=== PATIENT | female | born 1950 | race American Indian/Alaskan Native ===

== ENCOUNTER 2017-01-13 22:48 | Emergency (ER) | payer MEDICARE ==
[2017-01-13 23:12] VITALS: BP 156/73
--- NOTE | 2017-01-13 23:27 | Emergency Department Report ---
HPI - General Chief Complaint: Head Injury Time Seen by Provider: 01/13/17 23:13 - HPI HPI: Room 2 The patient is a 67-year-old female presenting with a chief complaint of head injury. Patient is currently at [facility] under 1013 for psychosis and hallucinations. The patient reportedly was sitting in her wheelchair when it tipped backwards and she fell striking the back of her head. There is no loss of consciousness. The fall occurred approximately one hour prior to this interview. Patient was sent for evaluation after the fall. Patient currently denies any complaints and states she only "wants coffee." Location: Head Duration: Occurred 1 hour ago Quality: Painless Severity: 0/10 Modifying factors: [see above] Context: [see above] Mode of transportation: [not driving] ED Past Medical Hx - Past Medical History Previous Medical History?: Yes Hx Hypertension: Yes Hx CVA: Yes (with residual left-sided weakness) Hx GERD: Yes Hx Psychiatric Treatment: Yes - Surgical History Past Surgical History?: No - Family History Family history: no significant - Social History Smoking Status: Unknown if ever smoked Substance Use Type: None ED Review of Systems ROS: Stated complaint: FALL Other details as noted in HPI Comment: All other systems reviewed and negative Constitutional: denies: chills, fever Eyes: denies: eye pain, eye discharge, vision change ENT: denies: ear pain, throat pain Respiratory: denies: cough, shortness of breath, wheezing Cardiovascular: denies: chest pain, palpitations Endocrine: no symptoms reported Gastrointestinal: denies: abdominal pain, nausea, diarrhea Genitourinary: denies: urgency, dysuria, discharge Musculoskeletal: denies: back pain, joint swelling, arthralgia Skin: denies: rash, lesions Neurological: denies: headache, weakness, paresthesias Psychiatric: visual hallucinations. denies: anxiety, depression Hematological/Lymphatic: denies: easy bleeding, easy bruising Physical Exam - Physical Exam Vital Signs: Vital Signs 01/13/17 23:02 Temperature 98.8 F Pulse Rate 58 L Respiratory 18 Rate Blood Pressure 156/73 O2 Sat by Pulse 99 Oximetry Physical Exam: GENERAL: The patient is well-developed well-nourished female sitting on stretcher not appearing to be in acute distress HEENT: Normocephalic. Atraumatic. Extraocular motions are intact. Patient has moist mucous membranes. NECK: Supple. No axial tenderness to palpation or step off CHEST/LUNGS: Clear to auscultation. There is no respiratory distress noted. HEART/CARDIOVASCULAR: Regular. There is no tachycardia. There is no gallop rub or murmur. ABDOMEN: Abdomen is soft, nontender. Patient has normal bowel sounds. There is no abdominal distention. SKIN: There is no rash. There is no edema. There is no diaphoresis. NEURO: The patient is awake and alert. The patient is cooperative. Cranial nerves II through XII grossly intact. 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 The patient has normal speech MUSCULOSKELETAL: There is no evidence of acute injury. ED Course Vital Signs 01/13/17 23:02 Temperature 98.8 F Pulse Rate 58 L Respiratory 18 Rate Blood Pressure 156/73 O2 Sat by Pulse 99 Oximetry ED Medical Decision Making - Radiology Data Radiology results: report reviewed (CT head, CT cervical spine), image reviewed (CT head, CT cervical spine) CT head (read by radiologist)-areas of hypoattenuation identified in the right temporal lobe consistent with subacute chronic infarction this region. No mass effect or midline displacement. Atrophy is noted. No acute hemorrhage or hematoma. CT cervical spine (read by radiologist)-no evidence of an acute fracture. Mild arthritis and degenerative disc changes. - Differential Diagnosis ICH, subdural hematoma, closed head injury, skull fracture, cervical fractu Critical care attestation.: If time is entered above; I have spent that time in minutes in the direct care of this critically ill patient, excluding procedure time. ED Disposition Clinical Impression: Closed head injury Disposition: DISCHARGED TO HOME OR SELFCARE Is pt being admited?: No Does the pt Need Aspirin: No Condition: Stable Instructions: Minor Head Injury (ED) Additional Instructions: Return to the emergency department immediately should you develop worsening symptoms, fever, inability to tolerate food or liquid or any other concerns. Referrals: PRIMARY CARE [Primary Care Provider] - 3-5 Days Time of Disposition: 00:17
[2017-01-14] MEDS ORDERED: NORMODYNE IV ONE (00:02)
--- NOTE | 2017-01-14 00:02 | Cat Scan Report ---
FINAL REPORT PROCEDURE: CT CERVICAL SPINE WO CON TECHNIQUE: Computerized tomography of the cervical spine was performed from the skull base to T1 without contrast material. HISTORY: head injury COMPARISON: No prior studies are available for comparison. FINDINGS: The alignment of the vertebral segments is normal. The heights of the vertebral bodies are maintained. Mild loss of disc space height at the C3-4, C4-5, C5-6 and C6-7 levels. Mild spur formation off of the vertebral segments from the C4 through C7 vertebral levels. The spinal canal is adequate at all levels. The visualized portion of the airway is patent. No evidence of acute fracture or dislocation of the cervical spine. IMPRESSION: No evidence of an acute fracture. Mild arthritis and degenerative disc changes..
--- NOTE | 2017-01-14 00:02 | Cat Scan Report ---
FINAL REPORT PROCEDURE: CT HEAD/BRAIN WO CON TECHNIQUE: Computerized tomography of the head was performed without contrast material. HISTORY: head injury COMPARISON: No prior studies are available for comparison. FINDINGS: Skull and scalp: Normal. Paranasal sinuses: Normal. Ventricles and subarachnoid spaces: Normal. Cerebrum: There is an area of hypoattenuation in the right temporal lobe, subacute chronic infarction in this region is noted. No mass effect or midline displacement is identified. No edema. No acute hemorrhage is seen.. Cerebellum and brainstem: No evidence of hemorrhage, acute infarction or mass. Vasculature: Normal. Comments: None. IMPRESSION: Area of hypoattenuation identified in the right temporal lobe consistent with subacute chronic infarction this region. No mass effect or midline displacement. Mild atrophy is noted. No acute hemorrhage or hematoma. This
== END 2017-01-14 01:50 | disposition home or self-care (01) ==
LOC: ED 22:48
DX: S09.90XA Unspecified injury of head, initial encounter (principal); I10 Essential (primary) hypertension; I63.9 Cerebral infarction, unspecified; K21.9 Gastro-esophageal reflux disease without esophagitis; W05.0XXA Fall from non-moving wheelchair, initial encounter; Y93.89 Activity, other specified; Y99.9 Unspecified external cause status; Y92.89 Other specified places as the place of occurrence of the external cause
CPT/HCPCS: 70450; 72125

== ENCOUNTER 2017-01-19 23:28 | Inpatient (IN) | payer MEDICARE ==
[2017-01-20] MEDS ORDERED: ATROPINE IV ONE (00:21)
--- NOTE | 2017-01-20 00:27 | Emergency Department Report ---
HPI - General Chief Complaint: Recheck/Abnormal Lab/Rx Time Seen by Provider: 01/20/17 00:13 - HPI HPI: Room 18 The patient is a 67-year-old female presenting with a chief complaint of bradycardia. The patient is reportedly a 1013 from [facility] was sent to the ED secondary to bradycardia. No paperwork from [facility] is currently available patient denies complaints and just states she feels cold. Patient denies chest pain. Nursing is attempting to obtain paperwork from [facility] Location: The cardiovascular system Duration: Unknown Quality: Bradycardia Severity: 31 bpm Modifying factors: [see above] Context: [see above] Mode of transportation: [not driving] ED Past Medical Hx - Past Medical History Hx Hypertension: Yes Hx CVA: Yes (with residual left-sided weakness) Hx GERD: Yes Hx Psychiatric Treatment: Yes - Surgical History Past Surgical History?: Yes Additional Surgical History: C-sections X 3, Abdominal skin grafts - Family History Family history: no significant - Social History Smoking Status: Never Smoker Substance Use Type: None ED Review of Systems ROS: Stated complaint: LOW HEART RATE Other details as noted in HPI Comment: All other systems reviewed and negative Constitutional: denies: chills, fever Eyes: denies: eye pain, eye discharge, vision change ENT: denies: ear pain, throat pain Respiratory: denies: cough, shortness of breath, wheezing Cardiovascular: denies: chest pain Endocrine: no symptoms reported Gastrointestinal: denies: abdominal pain, nausea, diarrhea Genitourinary: denies: urgency, dysuria, discharge Musculoskeletal: denies: back pain, joint swelling, arthralgia Skin: denies: rash, lesions Neurological: denies: headache, weakness, paresthesias Hematological/Lymphatic: denies: easy bleeding, easy bruising Physical Exam - Physical Exam Vital Signs: Vital Signs 01/19/17 23:39 Temperature 97.7 F Pulse Rate 48 L Respiratory 16 Rate Blood Pressure 138/45 Blood Pressure 136/45 [Left] O2 Sat by Pulse 100 Oximetry Physical Exam: GENERAL: The patient is well-developed well-nourished female sleeping on stretcher not appearing to be in acute distress. Due to awakened with tactile stimuli and denies complaints HEENT: Normocephalic. Atraumatic. NECK: Supple. Trachea midline CHEST/LUNGS: Clear to auscultation. There is no respiratory distress noted. HEART/CARDIOVASCULAR: Regular. Tachycardia. Monitor reveals 37 bpm. There is no gallop rub or murmur. ABDOMEN: Abdomen is soft, nontender. Patient has normal bowel sounds. There is no abdominal distention. SKIN: There is no rash. There is no edema. There is no diaphoresis. NEURO: The patient is awake and cooperative. The patient has normal speech MUSCULOSKELETAL: There is no evidence of acute injury. ED Course Vital Signs 01/19/17 23:39 Temperature 97.7 F Pulse Rate 48 L Respiratory 16 Rate Blood Pressure 138/45 Blood Pressure 136/45 [Left] O2 Sat by Pulse 100 Oximetry - Reevaluation(s) Reevaluation #1: 01/20/17 00:47 Patient's heart rate improved with atropine ED Medical Decision Making - Lab Data Result diagrams: 01/20/17 00:09 01/20/17 00:09 Laboratory Tests 01/20/17 01/20/17 01/20/17 00:09 00:09 00:27 WBC 5.3 RBC 4.55 Hgb 12.2 Hct 38.7 MCV 85 MCH 27 L MCHC 32 RDW 15.3 H Plt Count 174 Lymph % (Auto) Garment Supervisor Seg Neutrophils % Garment Supervisor Carbon Dioxide 30 BUN 9 Creatinine 0.5 L Estimated GFR > 60 BUN/Creatinine Ratio 18.00 Glucose 121 H Calcium 9.0 Magnesium 1.70 Troponin T < 0.010 TSH Free T4 01/20/17 00:27 WBC RBC Hgb Hct MCV MCH MCHC RDW Plt Count Lymph % (Auto) Seg Neutrophils % Carbon Dioxide BUN Creatinine Estimated GFR BUN/Creatinine Ratio Glucose Calcium Magnesium Troponin T TSH 1.220 Free T4 1.57 H Sodium 146, potassium 3.0, chloride 102.7 - EKG Data -: EKG Interpreted by In EKG shows normal: sinus rhythm Rate: bradycardia (at 42 bpm) - EKG Data When compared to previous EKG there are: previous EKG unavailable Interpretation: nonspecific ST-T wave roberto carlos (T-wave inversions in lead 3 and V2) 01/20/17 00:30 Profound bradycardia - Medical Decision Making Review of medical records sent from [facility] reveals the patient is on Lopressor however the times of administration are not visualized. - Differential Diagnosis sick sinus syndrome, electrolyte abnormality Critical care attestation.: If time is entered above; I have spent that time in minutes in the direct care of this critically ill patient, excluding procedure time. ED Disposition Clinical Impression: Bradycardia, Hypokalemia Disposition: OP ADMITTED IP TO THIS HOSP Is pt being admited?: Yes Does the pt Need Aspirin: Yes Condition: Stable Referrals: PRIMARY CARE,MD [Primary Care Provider] - 3-5 Days Time of Disposition: 01:32 (hospitalist paged)
[2017-01-20 00:32] LABS: Hematocrit 38.7 % (30.3-42.9); Hemoglobin 12.2 gm/dl (10.1-14.3); Mean Corpuscular HGB Conc 32 % (30-34); Mean Corpuscular Hemoglobin 27 pg (28-32); Mean Corpuscular Volume 85 fl (79-97); Platelet Count 174 K/mm3 (140-440); Red Blood Count 4.55 M/mm3 (3.65-5.03); Red Cell Distribution Width 15.3 % (13.2-15.2); White Blood Count 5.3 K/mm3 (4.5-11.0)
[2017-01-20 00:53] LABS: Anion Gap 16 mmol/L; Blood Urea Nitrogen 9 mg/dL (7-17); Carbon Dioxide 30 mmol/L (22-30); Chloride 102.7 mmol/L (98-107); Glucose 121 mg/dL (65-100); Sodium 146 mmol/L (137-145)
[2017-01-20] MEDS ORDERED: K-DUR PO ONE (01:21)
[2017-01-20] MEDS ORDERED: ASPIRIN PO ONE (01:32)
[2017-01-20 02:01] LABS: Urine Drugs of Abuse Note Disclamer
[2017-01-20] MEDS ORDERED: ASPIRIN ONE (02:02)
[2017-01-20 02:18] LABS: Anisocytosis 1+; Basophils % (Manual) 0 % (0.0-1.8); Blastocytes % (Manual) 0 %
[2017-01-20 02:19] LABS: Burr Cells Few; Diff Status Complete
[2017-01-20] MEDS ORDERED: TYLENOL PO PRN (06:20)
[2017-01-20] MEDS ORDERED: ZOFRAN IV PRN (06:20)
[2017-01-20] MEDS ORDERED: MILK OF MAGNESIA PO PRN (06:20)
[2017-01-20] MEDS ORDERED: DULCOLAX PR PRN (06:20)
--- NOTE | 2017-01-20 06:25 | History and Physical Report ---
History of Present Illness Date of examination: 01/20/17 Date of admission: 01/20/17 01:33 Chief complaint: Sent from [place] for HR of 30's History of present illness: The patient is a 67-year-old female presenting with a slow heart rate of 30's The patient is reportedly a 1013 from [place] [facility] was sent to the ED secondary to bradycardia. No Chest pain or syncope.No diaphoresis.Patient on betablockers which were stopped in ER. Location: The cardiovascular system Duration: Unknown Quality: Bradycardia Severity: 31 bpm Modifying factors: [see above] Context: [see above] Mode of transportation: [not driving] ED Past Medical Hx - Past Medical History Hx Hypertension: Yes Hx CVA: Yes (with residual left-sided weakness) Hx GERD: Yes Hx Psychiatric Treatment: Yes - Surgical History Past Surgical History?: Yes Additional Surgical History: C-sections X 3, Abdominal skin grafts - Family History Family history: no significant - Social History Smoking Status: Never Smoker Substance Use Type: None ED Review of Systems ROS: Stated complaint: LOW HEART RATE Other details as noted in HPI Comment: All other systems reviewed and negative Constitutional: denies: chills, fever Eyes: denies: eye pain, eye discharge, vision change ENT: denies: ear pain, throat pain Respiratory: denies: cough, shortness of breath, wheezing Cardiovascular: denies: chest pain Endocrine: no symptoms reported Gastrointestinal: denies: abdominal pain, nausea, diarrhea Genitourinary: denies: urgency, dysuria, discharge Musculoskeletal: denies: back pain, joint swelling, arthralgia Skin: denies: rash, lesions Neurological: denies: headache, weakness, paresthesias Hematological/Lymphatic: denies: easy bleeding, easy bruisin Past History Past Medical History: GERD, hypertension, stroke, other (psych problems) Social history: lives with family Medications and Allergies Allergies Allergy/AdvReac Type Severity Reaction Status Date / Time amlodipine besylate Allergy Hives Verified 01/20/17 02:21 [[address] [facility]] morphine Allergy Rash Verified 01/20/17 02:22 Home Medications Medication Instructions Recorded Confirmed Last Taken Type Clopidogrel Bisulfate [Plavix] 1 tab PO DAILY 01/20/17 01/20/17 Unknown History Keppra TAB 500 mg PO BID 01/20/17 01/20/17 Unknown History LaMICtal 50 mg PO HS 01/20/17 01/20/17 Unknown History Lopressor 50 mg PO BID 01/20/17 01/20/17 Unknown History Melatonin 3 mg PO HS 01/20/17 01/20/17 Unknown History RisperDAL 0.25 mg PO TID 01/20/17 01/20/17 Unknown History traZODone 50 mg PO HS 01/20/17 01/20/17 Unknown History Active Meds: Active Medications Clopidogrel Bisulfate (Plavix) 75 mg PO DAILY BRUNO Lamotrigine (Lamictal) 50 mg PO QHS BRUNO Levetiracetam (Keppra) 500 mg PO BID BRUNO Risperidone (Risperdal) 0.25 mg PO TID BRUNO Trazodone HCl (Desyrel) 50 mg PO QHS BRUNO Review of Systems All systems: negative Exam - Constitutional Vitals: Temp Pulse Resp BP Pulse Ox 98.9 F 43 L 20 163/63 99 01/20/17 04:51 01/20/17 05:17 01/20/17 05:10 01/20/17 04:51 01/20/17 05:10 General appearance: Present: no acute distress, well-nourished - EENT Eyes: Present: PERRL ENT: hearing intact, clear oral mucosa - Neck Neck: Present: supple, normal ROM - Respiratory Respiratory effort: normal Respiratory: bilateral: CTA - Cardiovascular Heart Sounds: Present: S1 & S2. Absent: rub, click - Extremities Extremities: pulses symmetrical, No edema Peripheral Pulses: within normal limits - Abdominal General gastrointestinal: Present: soft, non-tender, non-distended, normal bowel sounds Female genitourinary: Present: normal - Integumentary Integumentary: Present: clear, warm, dry - Musculoskeletal Musculoskeletal: gait normal, strength equal bilaterally - Psychiatric Psychiatric: appropriate mood/affect, intact judgment & insight - Neurologic Neurologic: CNII-XII intact, moves all extremities Results - Labs CBC & Chem 7: 01/20/17 00:09 01/20/17 07:46 Labs: Laboratory Last Values WBC 5.3 K/mm3 (4.5-11.0) 01/20/17 00:09 RBC 4.55 M/mm3 (3.65-5.03) 01/20/17 00:09 Hgb 12.2 gm/dl (10.1-14.3) 01/20/17 00:09 Hct 38.7 % (30.3-42.9) 01/20/17 00:09 MCV 85 fl (79-97) 01/20/17 00:09 MCH 27 pg (28-32) L 01/20/17 00:09 MCHC 32 % (30-34) 01/20/17 00:09 RDW 15.3 % (13.2-15.2) H 01/20/17 00:09 Plt Count 174 K/mm3 (140-440) 01/20/17 00:09 Lymph % (Auto) Service Counter Cashier 01/20/17 00:09 Add Manual Diff Complete 01/20/17 00:09 Total Counted 100 01/20/17 00:09 Seg Neutrophils % Service Counter Cashier 01/20/17 00:09 Seg Neuts % (Manual) 16.0 % (40.0-70.0) L 01/20/17 00:09 Band Neutrophils % 0 % 01/20/17 00:09 Lymphocytes % (Manual) 72.0 % (13.4-35.0) H 01/20/17 00:09 Reactive Lymphs % (Man) 2.0 % 01/20/17 00:09 Monocytes % (Manual) 5.0 % (0.0-7.3) 01/20/17 00:09 Eosinophils % (Manual) 5.0 % (0.0-4.3) H 01/20/17 00:09 Basophils % (Manual) 0 % (0.0-1.8) 01/20/17 00:09 Metamyelocytes % 0 % 01/20/17 00:09 Myelocytes % 0 % 01/20/17 00:09 Promyelocytes % 0 % 01/20/17 00:09 Blast Cells % 0 % 01/20/17 00:09 Nucleated RBC % Not Reportable 01/20/17 00:09 Seg Neutrophils # Man 0.8 K/mm3 (1.8-7.7) L 01/20/17 00:09 Band Neutrophils # 0.0 K/mm3 01/20/17 00:09 Lymphocytes # (Manual) 3.8 K/mm3 (1.2-5.4) 01/20/17 00:09 Abs React Lymphs (Man) 0.1 K/mm3 01/20/17 00:09 Monocytes # (Manual) 0.3 K/mm3 (0.0-0.8) 01/20/17 00:09 Eosinophils # (Manual) 0.3 K/mm3 (0.0-0.4) 01/20/17 00:09 Basophils # (Manual) 0.0 K/mm3 (0.0-0.1) 01/20/17 00:09 Metamyelocytes # 0.0 K/mm3 01/20/17 00:09 Myelocytes # 0.0 K/mm3 01/20/17 00:09 Promyelocytes # 0.0 K/mm3 01/20/17 00:09 Blast Cells # 0.0 K/mm3 01/20/17 00:09 WBC Morphology Not Reportable 01/20/17 00:09 Hypersegmented Neuts Not Reportable 01/20/17 00:09 Hyposegmented Neuts Not Reportable 01/20/17 00:09 Hypogranular Neuts Not Reportable 01/20/17 00:09 Smudge Cells Not Reportable 01/20/17 00:09 Toxic Granulation Not Reportable 01/20/17 00:09 Toxic Vacuolation Not Reportable 01/20/17 00:09 Dohle Bodies Not Reportable 01/20/17 00:09 Pelger-Huet Anomaly Not Reportable 01/20/17 00:09 Kristie Rods Not Reportable 01/20/17 00:09 Platelet Estimate Appears normal 01/20/17 00:09 Clumped Platelets Not Reportable 01/20/17 00:09 Plt Clumps, EDTA Not Reportable 01/20/17 00:09 Large Platelets Not Reportable 01/20/17 00:09 Giant Platelets Not Reportable 01/20/17 00:09 Platelet Satelliting Not Reportable 01/20/17 00:09 Plt Morphology Comment Not Reportable 01/20/17 00:09 RBC Morphology Not Reportable 01/20/17 00:09 Dimorphic RBCs Not Reportable 01/20/17 00:09 Polychromasia Not Reportable 01/20/17 00:09 Hypochromasia Not Reportable 01/20/17 00:09 Poikilocytosis Not Reportable 01/20/17 00:09 Anisocytosis 1+ 01/20/17 00:09 Microcytosis Not Reportable 01/20/17 00:09 Macrocytosis Not Reportable 01/20/17 00:09 Spherocytes Not Reportable 01/20/17 00:09 Pappenheimer Bodies Not Reportable 01/20/17 00:09 Sickle Cells Not Reportable 01/20/17 00:09 Target Cells Not Reportable 01/20/17 00:09 Tear Drop Cells Not Reportable 01/20/17 00:09 Ovalocytes Not Reportable 01/20/17 00:09 Helmet Cells Not Reportable 01/20/17 00:09 Choi-Merrifield Bodies Not Reportable 01/20/17 00:09 Massillon Rings Not Reportable 01/20/17 00:09 Maceo Cells Few 01/20/17 00:09 Bite Cells Not Reportable 01/20/17 00:09 Crenated Cell Not Reportable 01/20/17 00:09 Elliptocytes Not Reportable 01/20/17 00:09 Acanthocytes (Spur) Not Reportable 01/20/17 00:09 Rouleaux Not Reportable 01/20/17 00:09 Hemoglobin C Crystals Not Reportable 01/20/17 00:09 Schistocytes Not Reportable 01/20/17 00:09 Malaria parasites Not Reportable 01/20/17 00:09 Raheel Bodies Not Reportable 01/20/17 00:09 Hem Pathologist Commnt No 01/20/17 00:09 Carbon Dioxide 30 mmol/L (22-30) 01/20/17 00:09 BUN 9 mg/dL (7-17) 01/20/17 00:09 Creatinine 0.5 mg/dL (0.7-1.2) L 01/20/17 00:09 Estimated GFR > 60 ml/min 01/20/17 00:09 BUN/Creatinine Ratio 18.00 % 01/20/17 00:09 Glucose 121 mg/dL (65-100) H 01/20/17 00:09 Calcium 9.0 mg/dL (8.4-10.2) 01/20/17 00:09 Magnesium 1.70 mg/dL (1.7-2.3) 01/20/17 00:27 Troponin T < 0.010 ng/mL (0.00-0.029) 01/20/17 04:11 TSH 1.220 mlU/mL (0.270-4.200) 01/20/17 00:27 Free T4 1.57 ng/dL (0.76-1.46) H 01/20/17 00:27 Urine Opiates Screen Presumptive negative 01/20/17 Unknown Urine Methadone Screen Presumptive negative 01/20/17 Unknown Ur Barbiturates Screen Presumptive negative 01/20/17 Unknown Ur Phencyclidine Scrn Presumptive negative 01/20/17 Unknown Ur Amphetamines Screen Presumptive negative 01/20/17 Unknown U Benzodiazepines Scrn Presumptive negative 01/20/17 Unknown Urine Cocaine Screen Presumptive negative 01/20/17 Unknown U Marijuana (THC) Screen Presumptive negative 01/20/17 Unknown Drugs of Abuse Note Disclamer 01/20/17 Unknown - Imaging and Cardiology EKG: report reviewed (Sinus Bradycardia) Assessment and Plan Advance Directives: Yes (Full account) VTE prophylaxis?: Chemical Plan of care discussed with patient/family: Yes - Patient Problems (1) Bradycardia Current Visit: Yes Status: Acute Plan to address problem: On Lopressor.Stopped beta blockers. Will observe.Iv fluids for now. (2) Hypokalemia Current Visit: Yes Status: Acute Plan to address problem: Supplemented (3) HTN (hypertension) Current Visit: Yes Status: Chronic Qualifiers: Hypertension type: essential hypertension Qualified Code(s): I10 - Essential (primary) hypertension Plan to address problem: Hold Lopressor Add different class of antihypertensive as necessary (4) CVA, old, cognitive deficits Current Visit: Yes Status: Chronic Plan to address problem: Cont Plavix (5) Seizure disorder Current Visit: Yes Status: Chronic Plan to address problem: Cont Keppra and Lamictal (6) Psychosis Current Visit: Yes Status: Chronic Qualifiers: Psychosis type: unspecified psychosis type Schizoaffective disorder type: S Schizophrenia type: S Qualified Code(s): F29 - Unspecified psychosis not due to a substance or known physiological condition Plan to address problem: Cont risperdal (7) DVT prophylaxis Current Visit: Yes Status: Acute Plan to address problem: On Lovenox
[2017-01-20] MEDS ORDERED: D5NS 1,000 ML IV SCH (07:00)
[2017-01-20] MEDS ORDERED: RISPERDAL PO SCH (08:00)
[2017-01-20 08:54] LABS: Alanine Aminotransferase 16 units/L (7-56); Albumin 3.4 g/dL (3.9-5); Albumin/Globulin Ratio 1.4 %; Alkaline Phosphatase 86 units/L (35-129); Anion Gap 17 mmol/L; Blood Urea Nitrogen 7 mg/dL (7-17); Calcium 8.5 mg/dL (8.4-10.2); Carbon Dioxide 25 mmol/L (22-30); Chloride 102.1 mmol/L (98-107); Glucose 137 mg/dL (65-100); Potassium 3.3 mmol/L (3.6-5.0); Sodium 141 mmol/L (137-145); Total Protein 5.8 g/dL (6.3-8.2)
[2017-01-20] MEDS: KEPPRA PO SCH ×2 (09:56→22:42)
[2017-01-20] MEDS: RisperDAL PO SCH ×3 (09:56→22:41)
[2017-01-20] MEDS: PLAVIX PO SCH (09:56)
--- NOTE | 2017-01-20 09:57 | XRay Report ---
AP CHEST : 01/19/17 23:28:00 CLINICAL: Bradycardia. COMPARISON:None FINDINGS: Borderline cardiomegaly. Prominent cardiac stent graft and median sternotomy wires. Normal pulmonary vessels. The lungs are normally expanded and clear. IMPRESSION: Borderline cardiomegaly. No CHF.
[2017-01-20] MEDS ORDERED: KEPPRA 500 MG PO SCH (10:00)
[2017-01-20] MEDS: LOVENOX SUB-Q SCH (11:06)
[2017-01-20 15:52] LABS: Anion Gap 18 mmol/L; BUN/Creatinine Ratio 13.33; Blood Urea Nitrogen 8 mg/dL (7-17); Calcium 8.5 mg/dL (8.4-10.2); Carbon Dioxide 29 mmol/L (22-30); Chloride 101.2 mmol/L (98-107); Glucose 192 mg/dL (65-100); Potassium 3.3 mmol/L (3.6-5.0); Sodium 145 mmol/L (137-145)
[2017-01-20] MEDS: HALFPRIN EC PO SCH (16:46)
[2017-01-20] MEDS ORDERED: LAMICTAL 50 MG PO SCH (22:00)
[2017-01-20] MEDS ORDERED: NON-FORMULARY (Trazodone 50 MG) PO SCH (22:00)
[2017-01-20] MEDS: DESYREL PO SCH (22:41)
[2017-01-20] MEDS: ISORDIL TITRADOSE PO SCH (22:41)
[2017-01-20] MEDS: LaMICtal PO SCH (22:42)
[2017-01-21] MEDS: RisperDAL PO SCH ×2 (08:23→16:36)
--- NOTE | 2017-01-21 09:06 | Admit Criteria Form ---
Admission Criteria Documentation: TELEMETRY CARE Telemetry Admission Guidelines (Place 'X' for any and all applicable criteria): Admission to telemetry [A] may be indicated for ANY ONE of the following(1)(2)(3 )(4)(5): [X]I. Cardiac disease, including ANY ONE of the following (9)(10)(11)(12)(13 ): [ ]a) Postacute WI [ ]b) Low-risk patients with ST-segment elevation WI who have undergone successful percutaneous coronary intervention [ ]c) Unstable angina [ ]d) Suspected WI (until it is ruled out) [ ]e) Post cardiac surgery (first 48 to 72 hours unless complications occur) [X]f) Acute arrhythmias (including significant tachycardia or bradycardia) [B] [ ]g) Firing of an implantable cardioverter defibrillator [C] [ ]h) Suspected pacemaker or implantable cardioverter defibrillator malfunction (10) [ ]i) New administration or adjustment of an antiarrhythmic drug [D ] [ ]j) Child admitted for acute congestive heart failure [ ]j) Long QT syndrome [ ]k) Advanced heart block (eg, second-degree Mobitz type II, third- degree heart block) [ ]l) Acute myocarditis or pericarditis [ ]m) Short-term (ambulatory or inpatient) monitoring after a cardiac procedure as indicated by ANY ONE of the following [E]: [ ]i) Electrophysiologic studies [ ]ii) Percutaneous coronary intervention with stent placement [ ]iii) Pacemaker placement with cardiac conduction defect [ ]iv) Implantable cardiac defibrillator placement [ ]II. Drug overdose or poisoning with substance that causes arrhythmias or QT prolongation (eg, phenothiazines, sympathomimetic agents, cyclic antidepressants, digitalis, antiarrhythmic drugs)(15) [ ]III. Short-term (ambulatory or inpatient) monitoring after therapeutic or diagnostic procedure requiring conscious sedation or anesthesia (eg, endoscopy, elective cardioversion) [ ]IV. Acute cerebrovascular even[F](18) [ ]V. Massive blood transfusion (eg, at least 10 units of packed red blood cells in 24 hours) [ ]. Variceal bleeding after endoscopy, sclerotherapy, or IV vasopressin [ ]VII. Uncorrected electrolyte abnormalities associated with an increased risk of dangerous arrhythmia [G]; examples include [ ]a) Hyperkalemia with attributable ECG changes [ ]b) Potassium greater than 6.5 mmol/L (mEq/L) in a patient without history of chronic renal disease [ ]c) Prolonged QT attributed to hypokalemia, hypomagnesemia, or hypocalcemia [ ]VIII.Unexplained syncope or other neurologic event suspected of being due to arrhythmia due to a finding that increases risk; examples include(19)(20)(21): [ ]a) High-risk ECG findings (eg, bifascicular block, bradycardia, abnormal QT interval, ventricular pre- excitation) [ ]b) History of previous syncope due to arrhythmia [ ]c) Abnormal ventricular function (eg, reduced ejection fraction ) [ ]d) Exertional or supine syncope [ ]e) Concerning syncope characteristics (eg, sudden loss of consciousness without prodrome) [ ]f) Family history of sudden [ ]g) Use of arrhythmogenic medication [ ]h) Suspected cardiac ischemia [ ]i) Known channelopathy (eg, long QT syndrome, Brugada syndrome, or catecholaminergic paroxysmal ventricular tachycardia) [ ]j) Known structural heart disease (eg, hypertrophic cardiomyopathy , severe valvular disease) [ ]k) Palpitations preceding syncope The original [employer] content created by [employer] has been revised. The portions of the content which have been revised are identified through the use of italic text or in bold, and [email or web address] has neither reviewed nor approved the modified material. All other unmodified content is copyright [employer]. Please see references footnoted in the original [employer] edition 2016 Admission Criteria Met: Yes
--- NOTE | 2017-01-21 10:45 | Consultation ---
History of Present Illness Consult date: 01/21/17 Requesting physician: MOHAMUD SOUZA Consult reason: bradycardia History of present illness: The patient is a 67-year-old female with a past medical history significant for hypertension, CVA, possible seizure disorder, psych disorder, GERD. She is previously unknown to our practice. On evaluation, she denies any cardiac complaints and is unsure why she has been hospitalized. Per the records, the patient is reportedly a 1013 from [facility] was sent to the ED secondary to bradycardia. On arrival to the ED, the patient was noted to be in sinus bradycardia with a heart rate of 30s - 40s, BPs stable. She was noted to be on Lopressor, 25mg PO BID, at home. This medication was held upon arrival to the ED. She currently denies any cardiac complaints, including chest pain, palpitations, shortness of breath, nausea, vomiting, diaphoresis, dizziness, or syncope. She is currently in NSR with HR in the 80s - 90s, blood pressures stable. Past History Past Medical History: GERD, hypertension, stroke, other (psych problems) Social history: lives with family Medications and Allergies Allergies Allergy/AdvReac Type Severity Reaction Status Date / Time amlodipine besylate Allergy Hives Verified 01/20/17 02:21 [[facility]] morphine Allergy Rash Verified 01/20/17 02:22 Home Medications Medication Instructions Recorded Confirmed Last Taken Type Aspirin EC [Aspirin Enteric Coated 81 mg PO QDAY 01/20/17 01/20/17 3 Days Ago History TAB] AtorvaSTATin [Lipitor] 80 mg PO HS 01/20/17 01/20/17 3 Days Ago History Clopidogrel Bisulfate [Plavix] 1 tab PO DAILY 01/20/17 01/20/17 1 Day Ago History Famotidine [Pepcid] 20 mg PO DAILY 01/20/17 01/20/17 3 Days Ago History Isosorbide Dinitrate [Isordil 20 mg PO BID 01/20/17 01/20/17 3 Days Ago History Titradose] Keppra TAB 500 mg PO BID 01/20/17 01/20/17 1 Day Ago History LaMICtal 50 mg PO HS 01/20/17 01/20/17 1 Day Ago History Lopressor 25 mg PO BID 01/20/17 01/20/17 2 Days Ago History Losartan [Cozaar] 50 mg PO QDAY 01/20/17 01/20/17 3 Days Ago History Melatonin 3 mg PO HS 01/20/17 01/20/17 Unknown History Metoprolol Tartrate [Lopressor] 25 mg PO BID 01/20/17 01/20/17 2 Days Ago History RisperDAL 0.25 mg PO TID 01/20/17 01/20/17 2 Days Ago History traZODone 50 mg PO HS 01/20/17 01/20/17 2 Days Ago History Active Meds: Active Medications Acetaminophen (Tylenol) 650 mg PO Q4H PRN PRN Reason: Pain MILD(1-3)/Fever >100.5/ARREDONDO Aspirin (Halfprin Ec) 81 mg PO QDAY [facility] Last Admin: 01/20/17 16:46 Dose: 81 mg Atorvastatin Calcium (Lipitor) 80 mg PO HS [facility] Last Admin: 01/20/17 22:42 Dose: 80 mg Bisacodyl (Dulcolax) 10 mg OR QDAY PRN PRN Reason: Constipation unrelieved by MOM Clopidogrel Bisulfate (Plavix) 75 mg PO DAILY [facility] Last Admin: 01/20/17 09:56 Dose: 75 mg Enoxaparin Sodium (Lovenox) 40 mg SUB-Q QDAY [facility] Last Admin: 01/20/17 11:06 Dose: Not Given Famotidine (Pepcid) 20 mg PO DAILY [facility] Dextrose/Sodium Chloride (D5ns) 1,000 mls @ 100 mls/hr IV DIRECT [facility] Isosorbide Dinitrate (Isordil Titradose) 20 mg PO BID [facility] Last Admin: 01/20/17 22:41 Dose: 20 mg Lamotrigine (Lamictal) 50 mg PO QHS [facility] Last Admin: 01/20/17 22:42 Dose: 50 mg Levetiracetam (Keppra) 500 mg PO BID [facility] Last Admin: 01/20/17 22:42 Dose: 500 mg Losartan Potassium (Cozaar) 50 mg PO QDAY [facility] Magnesium Hydroxide (Milk Of Magnesia) 30 ml PO Q4H PRN PRN Reason: Constipation Ondansetron HCl (Zofran) 4 mg IV Q8H PRN PRN Reason: N/V unrelieved by Reglan Risperidone (Risperdal) 0.25 mg PO TID [facility] Last Admin: 01/21/17 08:23 Dose: 0.25 mg Trazodone HCl (Desyrel) 50 mg PO QHS [facility] Last Admin: 01/20/17 22:41 Dose: 50 mg Review of Systems Constitutional: no weight loss, no weight gain, no fever, no chills, no sweats Ears, nose, mouth and throat: no ear pain, no nasal congestion, no sinus pressure, no sinus pain Cardiovascular: no chest pain, no orthopnea, no palpitations, no rapid/ irregular heart beat, no edema, no syncope, no lightheadedness, no shortness of breath, no dyspnea on exertion, no paroxysmal nocturnal dyspnea, no high blood pressure, no leg edema, no decreased exercise tolerance Respiratory: no cough, no shortness of breath, no dyspnea on exertion, no congestion, no wheezing, no pain Gastrointestinal: no abdominal pain, no nausea, no vomiting, no diarrhea, no constipation, no change in bowel habits Genitourinary Female: no pelvic pain, no flank pain, no dysuria, no urinary frequency, no urgency Musculoskeletal: no neck stiffness, no neck pain, no shooting arm pain, no arm numbness/tingling, no low back pain, no shooting leg pain, no leg numbness/ tingling, no redness of joints Integumentary: no rash, no pruritis, no redness, no sores, no wounds Neurological: no head injury, no paralysis, no parathesias, no numbness, no tingling, no seizures, no syncope, no tremors Psychiatric: disorientation Endocrine: no cold intolerance, no heat intolerance, no polydipsia, no polyuria , no nocturia Hematologic/Lymphatic: no easy bruising, no easy bleeding, no lymphadenopathy Allergic/Immunologic: no urticaria, no wheezing, no persistent infections Physical Examination Vital Signs Resp Pulse Ox 18 100 01/19/17 23:30 01/19/17 23:30 General appearance: no acute distress HEENT: Positive: PERRL Neck: Positive: neck supple, trachea midline Cardiac: Positive: Reg Rate and Rhythm, S1/S2 Lungs: Positive: Normal Exam, clear to auscultation, Normal Breath Sounds Neuro: Positive: Grossly Intact Abdomen: Positive: Unremarkable, Soft, Active Bowel Sounds. Negative: Tender Skin: Positive: Clear. Negative: Rash, Wound Musculoskeletal: No Fluid Collection, No Pain, Normal Range of Motion Extremities: Present: upper extr. pulses, lower extr. pulses. Absent: edema Results 01/21/17 10:15 01/20/17 15:01 Comprehensive Metabolic Panel 01/20/17 Range/Units 15:01 Sodium 145 (137-145) mmol/L Potassium 3.3 L (3.6-5.0) mmol/L Chloride 101.2 (98-107) mmol/L Carbon Dioxide 29 (22-30) mmol/L BUN 8 (7-17) mg/dL Creatinine 0.6 L (0.7-1.2) mg/dL Glucose 192 H (65-100) mg/dL Calcium 8.5 (8.4-10.2) mg/dL - Imaging and Cardiology Echo: pending EKG: report reviewed, image reviewed EKG interpretations - Telemetry EKG Rhythm: Sinus Rhythm - EKG Sinus rhythms and dysrhythmias: sinus bradycardia (HR 42bpm) Assessment and Plan Assessment: Asymptomatic sinus bradycardia -> currently resolved with NSR, HR 80s - 90s, BPs stable; thyroid panel WNL. H/o CVA - cont ASA, statin, plavix HTN GERD Psych d/o Possible seizure d/o Hypomagnesemia Hypokalemia Plan: Cont to hold all AV allan blocking agents. Replete K+ and Mg. Repeat BMP and Mg in AM. Cont all other current medical management. Obtain echo. Cont tele. The patient has been sitting conjunction with Dr. Olguin who agrees with the assessment and plan of care.
[2017-01-21 10:51] LABS: Basophils % (Auto) 0.7 % (0.0-1.8); Eosinophils % (Auto) 1.3 % (0.0-4.3); Hemoglobin 11.7 gm/dl (10.1-14.3); Mean Corpuscular HGB Conc 33 % (30-34); Mean Corpuscular Hemoglobin 27 pg (28-32); Mean Corpuscular Volume 83 fl (79-97); Platelet Count 178 K/mm3 (140-440); Red Blood Count 4.33 M/mm3 (3.65-5.03); Red Cell Distribution Width 15.3 % (13.2-15.2); White Blood Count 5.6 K/mm3 (4.5-11.0)
[2017-01-21 11:07] LABS: Anion Gap 19 mmol/L; Blood Urea Nitrogen 6 mg/dL (7-17); Calcium 8.8 mg/dL (8.4-10.2); Carbon Dioxide 27 mmol/L (22-30); Chloride 101.7 mmol/L (98-107); Glucose 215 mg/dL (65-100); Sodium 145 mmol/L (137-145)
[2017-01-21 11:11] LABS: Potassium 2.9 mmol/L (3.6-5.0)
[2017-01-21] MEDS: HALFPRIN EC PO SCH (11:44)
[2017-01-21] MEDS: KEPPRA PO SCH ×2 (11:44→22:22)
[2017-01-21] MEDS: LOVENOX SUB-Q SCH (11:45)
[2017-01-21] MEDS: PLAVIX PO SCH (11:45)
[2017-01-21] MEDS: PEPCID PO SCH (11:45)
[2017-01-21] MEDS: ISORDIL TITRADOSE PO SCH ×3 (11:47→22:22)
[2017-01-21] MEDS: COZAAR PO SCH ×2 (11:47→12:03)
--- NOTE | 2017-01-21 11:49 | Consultation ---
CARDIOLOGY CONSULTATION HISTORY OF PRESENTING ILLNESS: The patient is a 67-year-old female, was admitted to [facility] on 01/13/2017, with increased paranoia, agitation. Apparently, she did not give her any history at the time of admission to [facility]. She is seeing a snake and also is having usual hallucinations and subsequently, she was transferred to Emergency Room at [facility] for bradycardia. The patient was given atropine 0.5 mg and her heart rate went up to 40 beats per minute; hence, the consultation. An EKG was performed which showed sinus bradycardia at 42 beats per minute with HI interval of 128, QRS duration of 72 and normal QTc interval was noted. The patient at the time of my examination does not give me much history. She denies any particular complaints at this time. EKG done on 01/20/2017, showed sinus rhythm at rate of 60 beats per minute with occasional APCs, otherwise unremarkable. PAST MEDICAL HISTORY: Remarkable for history of essential hypertension, history of diabetes mellitus, history of stroke with left-sided weakness and history of gastroesophageal reflux disease. PAST SURGICAL HISTORY: Included x3 and history of abdominal skin grafts, also I reviewed her records from [facility] and she has following cardiac history. The patient underwent aortocoronary bypass surgery with SVG to the diagonal and left internal mammary to the LAD on 11/19/1999. Subsequently on 07/10/2000, she was noted to have anastomotic site lesion of the diagonal vein graft and initially angioplasty was performed and again it was recorded on 05/12/2001, she had unstable angina with recurrence of the distal anastomotic site lesion of the diagonal graft and underwent beta radiation. The initial bypass included insertion of saphenous vein graft to the diagonal and left internal mammary to the LAD. Her ejection fraction has been normal. She is also being followed at [facility] for seizure like spells. The patient had chest x-ray done at the time of presentation, which showed borderline cardiomegaly, otherwise unremarkable. ALLERGIES: Included AMLODIPINE IN THE FORM ____ MORPHINE IN THE FORM OF RASH. MEDICATIONS: Prior to admission included Plavix 75 mg a day, Keppra 500 mg b.i.d., Lamictal 50 mg at bedtime, Lopressor 50 mg b.i.d., melatonin 3 mg at bedtime, Risperdal 0.5 mg three times a day, trazodone 50 mg at bedtime. LABORATORY DATA: Unremarkable with WBC count of 5.3, hemoglobin of 12.2 g/dL, platelet count of 174,000. Two sets of troponin T were unremarkable. BUN and creatinine are normal with potassium was found to be low at 3.3. TSH was 1.22, free T4 of 1.57. REVIEW OF SYSTEMS: Patient herself could not give much history because of her underlying psychiatric illness. Does not give any history, appears to be comfortable. No chest pain, no skin rash. Apparently, has a history of back pain in the past as mentioned above, she had leg swells in the past. Known coronary artery disease with bypass surgery and stenting as mentioned above according to the history and physical from the [place]. The patient has history of hypertension, diabetes mellitus and dyslipidemia. PHYSICAL EXAMINATION: GENERAL: At this time, the patient appears comfortable, in no acute distress. HEENT: Conjunctivae pink, sclerae anicteric. NECK: Supple, no JVD. HEART: Regular. Probable S4, no S3. LUNGS: Clear. ABDOMEN: Benign. EXTREMITIES: Without edema. NEUROLOGIC: Alert and oriented x 3. The patient cannot give much history. FINAL IMPRESSION: 1. Sinus bradycardia, most likely related to medications. Agree with holding the beta-sammy, namely Lopressor but now want to see how see does. Cardiac status appears to be stable. EKG is unremarkable except for sinus bradycardia. Continue the rest of the medications. We will monitor on telemetry. 2. History of aortocoronary bypass surgery as mentioned above. On 11/19/1999, underwent CABG with HOWE to the LAD and SVG to the diagonal. Had repeat catheterization done 07/10/2000, at which time, she developed stenosis at the distal anastomotic site of the SVG, underwent balloon angioplasty followed by the interventional with radiation at the same site on 05/12/2001. Her previous cardiac catheterization in 1999 showed normal LV function ____. At this time, he will get an echocardiogram for LV function, considering overall her mental status. We will continue to observe her. Continue present medical therapy and hold the beta-blockers and see her heart rate response. Thank you very much, Dr. Donohue, for letting us participate in the patient's care. JOB# [id number] REGULO/SHUN
[2017-01-21] MEDS ORDERED: POTASSIUM CHLORIDE FEEDTUBE ONE (12:00)
[2017-01-21] MEDS ORDERED: MAGNESIUM SULFATE 1 GM in NACL 0.9% 50 ML IV ONE (12:00)
--- NOTE | 2017-01-21 14:43 | Consultation ---
History of Present Illness - Reason for Consult Consult date: 01/21/17 Reason for consult: Mental Health Evaluation Requesting physician: JUAN PABLO ARSHAD - Chief Complaint Chief complaint: "When can I go home" - History of Present Psychiatric Illness The patient is a 67-year-old female presenting with a chief complaint of bradycardia. Today patient is calm, cooperative with a circumstantial thought process. She was able to tell me that she resides in [place], [place] and was a patient at [facility]. She has a hx of CVA. He daughter stated since her mom's stroke her "mind" has been different. She would see things that not there. During our conversation, the patient thought she saw something on my face and had to be redirected. During the assessment the patient was able to tell me her , recall 2/3 numbers after 5 mins, and spell WORLD backwards with some delay. Also, she told me that her just had a stroke and her daughter confirmed that story. The patient denies SI/HI's, AVH's, depression, sleep disturbance or a poor appetite. She denies recreational drug use or alcohol consumption (etoh). Patient was in restraints yesterday due to being combative with staff per her assigned RN. Medications and Allergies Allergies Allergy/AdvReac Type Severity Reaction Status Date / Time amlodipine besylate Allergy Hives Verified 01/20/17 02:21 [From [facility]] morphine Allergy Rash Verified 01/20/17 02:22 Home Medications Medication Instructions Recorded Confirmed Last Taken Type Aspirin EC [Aspirin Enteric Coated 81 mg PO QDAY 01/20/17 01/20/17 3 Days Ago History TAB] AtorvaSTATin [Lipitor] 80 mg PO HS 01/20/17 01/20/17 3 Days Ago History Clopidogrel Bisulfate [Plavix] 1 tab PO DAILY 01/20/17 01/20/17 1 Day Ago History Famotidine [Pepcid] 20 mg PO DAILY 01/20/17 01/20/17 3 Days Ago History Isosorbide Dinitrate [Isordil 20 mg PO BID 01/20/17 01/20/17 3 Days Ago History Titradose] Keppra TAB 500 mg PO BID 01/20/17 01/20/17 1 Day Ago History LaMICtal 50 mg PO HS 01/20/17 01/20/17 1 Day Ago History Lopressor 25 mg PO BID 01/20/17 01/20/17 2 Days Ago History Losartan [Cozaar] 50 mg PO QDAY 01/20/17 01/20/17 3 Days Ago History Melatonin 3 mg PO HS 01/20/17 01/20/17 Unknown History Metoprolol Tartrate [Lopressor] 25 mg PO BID 01/20/17 01/20/17 2 Days Ago History RisperDAL 0.25 mg PO TID 01/20/17 01/20/17 2 Days Ago History traZODone 50 mg PO HS 01/20/17 01/20/17 2 Days Ago History Active Meds: Active Medications Acetaminophen (Tylenol) 650 mg PO Q4H PRN PRN Reason: Pain MILD(1-3)/Fever >100.5/ARREDONDO Aspirin (Halfprin Ec) 81 mg PO QDAY [facility] Last Admin: 01/21/17 11:44 Dose: 81 mg Atorvastatin Calcium (Lipitor) 80 mg PO HS [facility] Last Admin: 01/20/17 22:42 Dose: 80 mg Bisacodyl (Dulcolax) 10 mg ID QDAY PRN PRN Reason: Constipation unrelieved by MOM Clopidogrel Bisulfate (Plavix) 75 mg PO DAILY [facility] Last Admin: 01/21/17 11:45 Dose: 75 mg Enoxaparin Sodium (Lovenox) 40 mg SUB-Q QDAY [facility] Last Admin: 01/21/17 11:45 Dose: 40 mg Famotidine (Pepcid) 20 mg PO DAILY [facility] Last Admin: 01/21/17 11:45 Dose: 20 mg Isosorbide Dinitrate (Isordil Titradose) 20 mg PO BID [facility] Last Admin: 01/21/17 12:03 Dose: 20 mg Lamotrigine (Lamictal) 50 mg PO QHS [facility] Last Admin: 01/20/17 22:42 Dose: 50 mg Levetiracetam (Keppra) 500 mg PO BID [facility] Last Admin: 01/21/17 11:44 Dose: 500 mg Losartan Potassium (Cozaar) 50 mg PO QDAY [facility] Last Admin: 01/21/17 12:03 Dose: 50 mg Magnesium Hydroxide (Milk Of Magnesia) 30 ml PO Q4H PRN PRN Reason: Constipation Ondansetron HCl (Zofran) 4 mg IV Q8H PRN PRN Reason: N/V unrelieved by Reglan Risperidone (Risperdal) 0.25 mg PO TID [facility] Last Admin: 01/21/17 08:23 Dose: 0.25 mg Trazodone HCl (Desyrel) 50 mg PO QHS [facility] Last Admin: 01/20/17 22:41 Dose: 50 mg Past psychiatric history - Past Medical History Past Medical History: GERD, other (CAV, left side weakness) Past Surgical History: Other ( x 3, Skin grafts, ) - past Psychiatric treatment and history psychiatric treatment history: [place] inpatient. Denies fam psy hx. - Social History Social history: ([employer] graduate, retired) Mental Status Exam - Vital signs Last Vital Signs Temp 98.8 F 01/21/17 09:18 Pulse 87 01/21/17 10:00 Resp 18 01/21/17 09:18 BP 127/75 01/21/17 09:18 Pulse Ox 99 01/21/17 05:20 - Exam Narrative exam: ROS (+) hallucinations MSE: Appearance: calm, cooperative Behavior: good eye contact Speech: regular rate and tone Mood: "I feel okay" Affect: mood congruent Thought Process: circumstantial Thought Content: denies SI/HI's and AVH's Motor Activity: lying in bed Cognition: a/o x3 Insight: fair Judgment: fair Results Result Diagrams: 01/21/17 10:15 01/21/17 10:15 Abnormal lab results 01/20/17 01/21/17 01/21/17 Range/Units 15:01 10:15 10:15 MCH 27 L (28-32) pg RDW 15.3 H (13.2-15.2) % Lymph % (Auto) 39.7 H (13.4-35.0) % Spink % (Auto) 8.7 H (0.0-7.3) % Potassium 3.3 L 2.9 L* (3.6-5.0) mmol/L BUN 6 L (7-17) mg/dL Creatinine 0.6 L 0.5 L (0.7-1.2) mg/dL Glucose 192 H 215 H (65-100) mg/dL All other labs normal. Assessment and Plan Assessment and plan: Impression: Unspecified Delirium. The patient is a 67-year-old female presenting with a chief complaint of bradycardia. Today patient is calm, cooperative with a circumstantial thought process. She was able to tell me that she resides in [place], [place] and was a patient at [facility]. She has a hx of CVA with left sided weakness. He daughter stated since her mom's stroke her "mind" has been different. She would see things that not there. During our conversation , the patient thought she saw something on my face and had to be redirected. During the assessment the patient was able to tell me her , recall 2/3 numbers after 5 mins, and spell WORLD backwards with some delay. Patient is restraint free today. Patient has neurology appt upcoming near her home, per her daughter. DD: Adjustment DO Recommendation/Plan: Rescind 1013. Please attempt to place patient with 1:1 sitter to verbally redirect instead of using restraints if at all possible, Frequently reorient patient and involve her in their care (simple explanations of procedures, tests, medications), Lights on and shades open during daytime hours, Write date and goals of care in a visible place, Try to avoid unnecessary interruptions to sleep during nighttime hours, Obtain glasses and hearing aids from home if patient uses these at baseline, Avoid medications that may exacerbate delirium (especially narcotics, benzodiazepines, barbiturates, ambien, lunesta, and medications with excessive anticholinergic properties). D/C Risperdal.
--- NOTE | 2017-01-21 19:35 | Progress Note ---
Assessment and Plan Assessment and plan: 67 years old female with psychiatric disorder admitted at [facility], sent to the hospital for symptomatic bradycardia 1. Asymptomatic sinus bradycardia - resolved after BB held 2. Electrolyte abnormalities (hypokalemia, hypomagnesemia) - replete, recheck in am 3. Hypertension - BP controlled on current regimen 4. Prior CVA - asp and statin 5. Seizure disorder - continue Keppra, Lamictal 6. Psychiatric disorder - psych following History Interval history: feeling well today, no events; sitter present Hospitalist Physical - Constitutional Vitals: Temp Pulse Resp BP Pulse Ox 97.9 F 77 18 115/68 99 01/21/17 16:07 01/21/17 16:07 01/21/17 16:07 01/21/17 16:07 01/21/17 05:20 General appearance: Present: no acute distress, well-nourished - Neck Neck: Present: supple, normal ROM. Absent: masses or JVD - Respiratory Respiratory effort: normal Respiratory: bilateral: CTA, negative: rhonchi, wheezing - Cardiovascular Rhythm: regular Heart Sounds: Present: S1 & S2. Absent: systolic murmur - Extremities Extremities: no ischemia - Abdominal General gastrointestinal: soft, non-tender, non-distended, normal bowel sounds - Neurologic Neurologic: CNII-XII intact, no focal deficits Results - Labs CBC & Chem 7: 01/21/17 10:15 01/22/17 07:52 Labs: Laboratory Last Values WBC 5.6 K/mm3 (4.5-11.0) 01/21/17 10:15 RBC 4.33 M/mm3 (3.65-5.03) 01/21/17 10:15 Hgb 11.7 gm/dl (10.1-14.3) 01/21/17 10:15 Hct 36.0 % (30.3-42.9) 01/21/17 10:15 MCV 83 fl (79-97) 01/21/17 10:15 MCH 27 pg (28-32) L 01/21/17 10:15 MCHC 33 % (30-34) 01/21/17 10:15 RDW 15.3 % (13.2-15.2) H 01/21/17 10:15 Plt Count 178 K/mm3 (140-440) 01/21/17 10:15 Lymph % (Auto) 39.7 % (13.4-35.0) H 01/21/17 10:15 [place] % (Auto) 8.7 % (0.0-7.3) H 01/21/17 10:15 Eos % (Auto) 1.3 % (0.0-4.3) 01/21/17 10:15 Baso % (Auto) 0.7 % (0.0-1.8) 01/21/17 10:15 Lymph # 2.2 K/mm3 (1.2-5.4) 01/21/17 10:15 [place] # 0.5 K/mm3 (0.0-0.8) 01/21/17 10:15 Eos # 0.1 K/mm3 (0.0-0.4) 01/21/17 10:15 Baso # 0.0 K/mm3 (0.0-0.1) 01/21/17 10:15 Add Manual Diff Complete 01/20/17 00:09 Total Counted 100 01/20/17 00:09 Seg Neutrophils % 49.6 % (40.0-70.0) 01/21/17 10:15 Seg Neuts % (Manual) 16.0 % (40.0-70.0) L 01/20/17 00:09 Band Neutrophils % 0 % 01/20/17 00:09 Lymphocytes % (Manual) 72.0 % (13.4-35.0) H 01/20/17 00:09 Reactive Lymphs % (Man) 2.0 % 01/20/17 00:09 Monocytes % (Manual) 5.0 % (0.0-7.3) 01/20/17 00:09 Eosinophils % (Manual) 5.0 % (0.0-4.3) H 01/20/17 00:09 Basophils % (Manual) 0 % (0.0-1.8) 01/20/17 00:09 Metamyelocytes % 0 % 01/20/17 00:09 Myelocytes % 0 % 01/20/17 00:09 Promyelocytes % 0 % 01/20/17 00:09 Blast Cells % 0 % 01/20/17 00:09 Nucleated RBC % Not Reportable 01/20/17 00:09 Seg Neutrophils # 2.8 K/mm3 (1.8-7.7) 01/21/17 10:15 Seg Neutrophils # Man 0.8 K/mm3 (1.8-7.7) L 01/20/17 00:09 Band Neutrophils # 0.0 K/mm3 01/20/17 00:09 Lymphocytes # (Manual) 3.8 K/mm3 (1.2-5.4) 01/20/17 00:09 Abs React Lymphs (Man) 0.1 K/mm3 01/20/17 00:09 Monocytes # (Manual) 0.3 K/mm3 (0.0-0.8) 01/20/17 00:09 Eosinophils # (Manual) 0.3 K/mm3 (0.0-0.4) 01/20/17 00:09 Basophils # (Manual) 0.0 K/mm3 (0.0-0.1) 01/20/17 00:09 Metamyelocytes # 0.0 K/mm3 01/20/17 00:09 Myelocytes # 0.0 K/mm3 01/20/17 00:09 Promyelocytes # 0.0 K/mm3 01/20/17 00:09 Blast Cells # 0.0 K/mm3 01/20/17 00:09 WBC Morphology Not Reportable 01/20/17 00:09 Hypersegmented Neuts Not Reportable 01/20/17 00:09 Hyposegmented Neuts Not Reportable 01/20/17 00:09 Hypogranular Neuts Not Reportable 01/20/17 00:09 Smudge Cells Not Reportable 01/20/17 00:09 Toxic Granulation Not Reportable 01/20/17 00:09 Toxic Vacuolation Not Reportable 01/20/17 00:09 Dohle Bodies Not Reportable 01/20/17 00:09 Pelger-Huet Anomaly Not Reportable 01/20/17 00:09 Kristie Rods Not Reportable 01/20/17 00:09 Platelet Estimate Appears normal 01/20/17 00:09 Clumped Platelets Not Reportable 01/20/17 00:09 Plt Clumps, EDTA Not Reportable 01/20/17 00:09 Large Platelets Not Reportable 01/20/17 00:09 Giant Platelets Not Reportable 01/20/17 00:09 Platelet Satelliting Not Reportable 01/20/17 00:09 Plt Morphology Comment Not Reportable 01/20/17 00:09 RBC Morphology Not Reportable 01/20/17 00:09 Dimorphic RBCs Not Reportable 01/20/17 00:09 Polychromasia Not Reportable 01/20/17 00:09 Hypochromasia Not Reportable 01/20/17 00:09 Poikilocytosis Not Reportable 01/20/17 00:09 Anisocytosis 1+ 01/20/17 00:09 Microcytosis Not Reportable 01/20/17 00:09 Macrocytosis Not Reportable 01/20/17 00:09 Spherocytes Not Reportable 01/20/17 00:09 Pappenheimer Bodies Not Reportable 01/20/17 00:09 Sickle Cells Not Reportable 01/20/17 00:09 Target Cells Not Reportable 01/20/17 00:09 Tear Drop Cells Not Reportable 01/20/17 00:09 Ovalocytes Not Reportable 01/20/17 00:09 Helmet Cells Not Reportable 01/20/17 00:09 [place] Bodies Not Reportable 01/20/17 00:09 [place] Rings Not Reportable 01/20/17 00:09 [place] Cells Few 01/20/17 00:09 Bite Cells Not Reportable 01/20/17 00:09 Crenated Cell Not Reportable 01/20/17 00:09 Elliptocytes Not Reportable 01/20/17 00:09 Acanthocytes (Spur) Not Reportable 01/20/17 00:09 Rouleaux Not Reportable 01/20/17 00:09 Hemoglobin C Crystals Not Reportable 01/20/17 00:09 Schistocytes Not Reportable 01/20/17 00:09 Malaria parasites Not Reportable 01/20/17 00:09 [place] Bodies Not Reportable 01/20/17 00:09 Hem Pathologist Commnt No 01/20/17 00:09 Sodium 145 mmol/L (137-145) 01/21/17 10:15 Potassium 2.9 mmol/L (3.6-5.0) L* 01/21/17 10:15 Chloride 101.7 mmol/L (98-107) 01/21/17 10:15 Carbon Dioxide 27 mmol/L (22-30) 01/21/17 10:15 Anion Gap 19 mmol/L 01/21/17 10:15 BUN 6 mg/dL (7-17) L 01/21/17 10:15 Creatinine 0.5 mg/dL (0.7-1.2) L 01/21/17 10:15 Estimated GFR > 60 ml/min 01/21/17 10:15 BUN/Creatinine Ratio 12.00 % 01/21/17 10:15 Glucose 215 mg/dL (65-100) H 01/21/17 10:15 Hemoglobin A1c 7.4 % (4-6) H 01/20/17 07:46 Calcium 8.8 mg/dL (8.4-10.2) 01/21/17 10:15 Magnesium 1.70 mg/dL (1.7-2.3) 01/20/17 00:27 Total Bilirubin 0.80 mg/dL (0.1-1.2) 01/20/17 07:46 AST 25 units/L (5-40) 01/20/17 07:46 ALT 16 units/L (7-56) 01/20/17 07:46 Alkaline Phosphatase 86 units/L (35-129) 01/20/17 07:46 Troponin T < 0.010 ng/mL (0.00-0.029) 01/20/17 04:11 Total Protein 5.8 g/dL (6.3-8.2) L 01/20/17 07:46 Albumin 3.4 g/dL (3.9-5) L 01/20/17 07:46 Albumin/Globulin Ratio 1.4 % 01/20/17 07:46 TSH 1.220 mlU/mL (0.270-4.200) 01/20/17 00:27 Free T4 1.57 ng/dL (0.76-1.46) H 01/20/17 00:27 Urine Opiates Screen Presumptive negative 01/20/17 Unknown Urine Methadone Screen Presumptive negative 01/20/17 Unknown Ur Barbiturates Screen Presumptive negative 01/20/17 Unknown Ur Phencyclidine Scrn Presumptive negative 01/20/17 Unknown Ur Amphetamines Screen Presumptive negative 01/20/17 Unknown U Benzodiazepines Scrn Presumptive negative 01/20/17 Unknown Urine Cocaine Screen Presumptive negative 01/20/17 Unknown U Marijuana (THC) Screen Presumptive negative 01/20/17 Unknown Drugs of Abuse Note Disclamer 01/20/17 Unknown
--- NOTE | 2017-01-21 19:57 | Consultation ---
History of Present Illness - Reason for Consult Consult date: 01/21/17 Reason for consult: Mental Health Evaluation Requesting physician: SAPPHIRE JUAREZ - Chief Complaint Chief complaint: "When can I go home" Medications and Allergies Allergies Allergy/AdvReac Type Severity Reaction Status Date / Time amlodipine besylate Allergy Hives Verified 01/20/17 02:21 [From [facility]] morphine Allergy Rash Verified 01/20/17 02:22 Home Medications Medication Instructions Recorded Confirmed Last Taken Type Aspirin EC [Aspirin Enteric Coated 81 mg PO QDAY 01/20/17 01/20/17 3 Days Ago History TAB] AtorvaSTATin [Lipitor] 80 mg PO HS 01/20/17 01/20/17 3 Days Ago History Clopidogrel Bisulfate [Plavix] 1 tab PO DAILY 01/20/17 01/20/17 1 Day Ago History Famotidine [Pepcid] 20 mg PO DAILY 01/20/17 01/20/17 3 Days Ago History Isosorbide Dinitrate [Isordil 20 mg PO BID 01/20/17 01/20/17 3 Days Ago History Titradose] Keppra TAB 500 mg PO BID 01/20/17 01/20/17 1 Day Ago History LaMICtal 50 mg PO HS 01/20/17 01/20/17 1 Day Ago History Lopressor 25 mg PO BID 01/20/17 01/20/17 2 Days Ago History Losartan [Cozaar] 50 mg PO QDAY 01/20/17 01/20/17 3 Days Ago History Melatonin 3 mg PO HS 01/20/17 01/20/17 Unknown History Metoprolol Tartrate [Lopressor] 25 mg PO BID 01/20/17 01/20/17 2 Days Ago History RisperDAL 0.25 mg PO TID 01/20/17 01/20/17 2 Days Ago History traZODone 50 mg PO HS 01/20/17 01/20/17 2 Days Ago History Active Meds: Active Medications Acetaminophen (Tylenol) 650 mg PO Q4H PRN PRN Reason: Pain MILD(1-3)/Fever >100.5/ARREDONDO Aspirin (Halfprin Ec) 81 mg PO QDAY [facility] Last Admin: 01/21/17 11:44 Dose: 81 mg Atorvastatin Calcium (Lipitor) 80 mg PO [facility] Last Admin: 01/20/17 22:42 Dose: 80 mg Bisacodyl (Dulcolax) 10 mg [place] QDAY PRN PRN Reason: Constipation unrelieved by MOM Clopidogrel Bisulfate (Plavix) 75 mg PO DAILY [facility] Last Admin: 01/21/17 11:45 Dose: 75 mg Enoxaparin Sodium (Lovenox) 40 mg SUB-Q QDAY [facility] Last Admin: 01/21/17 11:45 Dose: 40 mg Famotidine (Pepcid) 20 mg PO DAILY [facility] Last Admin: 01/21/17 11:45 Dose: 20 mg Isosorbide Dinitrate (Isordil Titradose) 20 mg PO BID [facility] Last Admin: 01/21/17 12:03 Dose: 20 mg Lamotrigine (Lamictal) 50 mg PO QHS [facility] Last Admin: 01/20/17 22:42 Dose: 50 mg Levetiracetam (Keppra) 500 mg PO BID [facility] Last Admin: 01/21/17 11:44 Dose: 500 mg Losartan Potassium (Cozaar) 50 mg PO QDAY [facility] Last Admin: 01/21/17 12:03 Dose: 50 mg Magnesium Hydroxide (Milk Of Magnesia) 30 ml PO Q4H PRN PRN Reason: Constipation Ondansetron HCl (Zofran) 4 mg IV Q8H PRN PRN Reason: N/V unrelieved by Reglan Risperidone (Risperdal) 0.25 mg PO TID [facility] Last Admin: 01/21/17 16:36 Dose: 0.25 mg Trazodone HCl (Desyrel) 50 mg PO QHS [facility] Last Admin: 01/20/17 22:41 Dose: 50 mg Mental Status Exam - Vital signs Last Vital Signs Temp 97.9 F 01/21/17 16:07 Pulse 77 01/21/17 16:07 Resp 18 01/21/17 16:07 BP 115/68 01/21/17 16:07 Pulse Ox 99 01/21/17 05:20 - Exam Narrative exam: ROS (-) depression, (-) pychosis Appearance: calm, cooperative Behavior: good eye contact Speech: regular rate and tone Mood: "I feel pretty well" Affect: mood congruent Thought Process: circumstantial Thought Content: denies SI/HI's and AVH's Motor Activity: sitting up in bed Cognition: a/ox3 Insight: fair Judgment: fair Results Result Diagrams: 01/21/17 10:15 01/21/17 10:15 Abnormal lab results 01/21/17 01/21/17 Range/Units 10:15 10:15 MCH 27 L (28-32) pg RDW 15.3 H (13.2-15.2) % Lymph % (Auto) 39.7 H (13.4-35.0) % [place] % (Auto) 8.7 H (0.0-7.3) % Potassium 2.9 L* (3.6-5.0) mmol/L BUN 6 L (7-17) mg/dL Creatinine 0.5 L (0.7-1.2) mg/dL Glucose 215 H (65-100) mg/dL All other labs normal. Assessment and Plan Assessment and plan: Impression: Recommendation/Plan:
[2017-01-21] MEDS: DESYREL PO SCH (22:22)
[2017-01-21] MEDS: LaMICtal PO SCH (22:23)
[2017-01-22] MEDS: RisperDAL PO SCH (08:09)
[2017-01-22 08:44] LABS: Anion Gap 17 mmol/L; Blood Urea Nitrogen 5 mg/dL (7-17); Calcium 8.9 mg/dL (8.4-10.2); Carbon Dioxide 27 mmol/L (22-30); Chloride 102.6 mmol/L (98-107); Glucose 146 mg/dL (65-100); Potassium 3.3 mmol/L (3.6-5.0); Sodium 143 mmol/L (137-145)
[2017-01-22 08:52] VITALS: BP 138/68
--- NOTE | 2017-01-22 09:01 | Progress Note ---
Subjective - Reason for Consult Consult date: 01/22/17 Reason for consult: Psychiatry Follow-up - Chief Complaint Chief complaint: "Can I leave today" The patient is a 67-year-old female presenting with a chief complaint of bradycardia. Today patient is calm, cooperative with a circumstantial thought process. patient was in restraints when I arrived to her room. Per the staffing recruiter , she would not go back to bed after using the restroom. The patient could not recall the incident when asked. She did remember me from yesterday. She denies SI/HI's and AVH's. No note of sleep disturbance once she was back in bed. Mental Status Exam - Vital signs Last Vital Signs Temp 98.3 F 01/22/17 08:52 Pulse 73 01/22/17 08:52 Resp 18 01/22/17 08:52 BP 138/68 01/22/17 08:52 Pulse Ox 95 01/22/17 08:52 - Exam Narrative exam: MSE: Appearance: calm, cooperative Behavior: good eye contact Speech: regular rate and tone Mood: "I am okay" Affect: mood congruent Thought Process: circumstantial Thought Content: denies SI/HI's and AVH's Motor Activity: lying in bed Cognition: a/o x3 Insight: limited Judgment: limited Assessment and Plan Impression: The patient is a 67-year-old female presenting with a chief complaint of bradycardia. Today patient is calm, cooperative with a circumstantial thought process. Patient was in restraints when I arrived to her room. Per the staffing recruiter, she would not go back to bed after using the restroom. The patient could not recall the incident when asked. She did remember me from yesterday. She denies SI/HI's and AVH's. Recommendation/Plan: Please attempt to place patient with 1:1 sitter to verbally redirect instead of using restraints if at all possible, Frequently reorient patient and involve her in their care (simple explanations of procedures, tests, medications), Lights on and shades open during daytime hours , Write date and goals of care in a visible place, Try to avoid unnecessary interruptions to sleep during nighttime hours, Obtain glasses and hearing aids from home if patient uses these at baseline, Avoid medications that may exacerbate delirium (especially narcotics, benzodiazepines, barbiturates, ambien , lunesta, and medications with excessive anticholinergic properties). If possible, move patient close to the nurses station.
[2017-01-22] MEDS ORDERED: POTASSIUM CHLORIDE FEEDTUBE ONE (10:00)
[2017-01-22] MEDS ORDERED: K-DUR PO ONE (10:23)
--- NOTE | 2017-01-22 10:29 | Discharge Summary ---
Providers - Providers Date of Admission: 01/20/17 01:33 Date of discharge: 01/22/17 Attending physician: SAPPHIRE JUAREZ 01/20/17 06:20 Consult to Physician [CONS] Routine Consulting Provider: HARMEET MCFADDEN Reason For Exam: bRADYCARDIA Place consult to:: [facility] heart Notified:: jesus service Phone number called:: [phone] Was contact made?: Yes If yes, spoke with:: davi Time called:: 09:14 Comment:: put on list 01/20/17 14:50 Consult to Mental Health [CONS] Routine Reason For Exam: Psychosis Place consult to:: keisha Notified:: Vilma NEVILLE Phone number called:: [phone] Was contact made?: Yes If yes, spoke with:: [facility] Time called:: 08:25 Comment:: no answer when called Primary care physician: PERSONNEL RECRUITER Hospitalization Reason for admission: bradycardia Condition: Stable Pertinent studies: CXR ECHO Hospital course: Patient is a 67 years old female with psychiatric disorder admitted at [facility] was sent to the hospital for bradycardia which was symptomatic and most likely due to beta sammy use as resolved quickly after metoprolol was held. Echo obtained and showed normal LV function with abnormal diastolic filling. Thyroid panel also normal. Cardiology consulted and no intervention needed. Patient is discharged back to [facility] in stable condition, continue to hold beta sammy. Discharge diagnosis: Asymptomatic sinus bradycardia - resolved Electrolyte abnormalities (hypokalemia, hypomagnesemia) - resolved Hypertension Prior CVA Seizure disorder Psychiatric disorder Disposition: DC/TX PSY HOSP/PSY UNIT Time spent for discharge: 35 min Core Measure Documentation - Palliative Care Palliative Care/ Comfort Measures: Not Applicable - Core Measures Any of the following diagnoses?: none Exam - Physical Exam Narrative exam: Patient seen and examined: - Constitutional Vitals: Temp Pulse Resp BP Pulse Ox 98.3 F 73 18 138/68 95 01/22/17 08:52 01/22/17 08:52 01/22/17 08:52 01/22/17 08:52 01/22/17 08:52 General appearance: Present: no acute distress - EENT Eyes: Present: PERRL, EOM intact. Absent: scleral icterus, conjunctival injection - Neck Neck: Present: supple, normal ROM. Absent: masses or JVD - Respiratory Respiratory effort: normal Respiratory: bilateral: CTA, negative: rhonchi, wheezing - Cardiovascular Rhythm: regular Heart Sounds: Present: S1 & S2. Absent: systolic murmur - Extremities Extremities: no ischemia - Abdominal General gastrointestinal: Present: soft, non-tender, non-distended, normal bowel sounds - Psychiatric Psychiatric: no intact judgment & insight - Neurologic Neurologic: no focal deficits Plan Activity: advance as tolerated Diet: low cholesterol, low salt Additional Instructions: Followed by psychiatry Follow up with: PRIMARY CARE,MD [Primary Care Provider] - 3-5 Days Prescriptions: Aspirin EC [Aspirin Enteric Coated TAB] 81 mg PO QDAY #30 tablet AtorvaSTATin [Lipitor] 80 mg PO HS #60 tablet Clopidogrel Bisulfate [Plavix] 1 tab PO DAILY #30 tablet Famotidine [Pepcid] 20 mg PO DAILY #30 tablet Isosorbide Dinitrate [Isordil Titradose] 20 mg PO BID #60 tablet Keppra TAB 500 mg PO BID #60 LaMICtal 50 mg PO HS #30 Losartan [Cozaar] 50 mg PO QDAY #30 tablet traZODone 50 mg PO HS #30
[2017-01-22] MEDS: LOVENOX SUB-Q SCH (13:07)
[2017-01-22] MEDS: KEPPRA PO SCH (13:07)
[2017-01-22] MEDS: ISORDIL TITRADOSE PO SCH (13:07)
[2017-01-22] MEDS: COZAAR PO SCH (13:07)
[2017-01-22] MEDS: HALFPRIN EC PO SCH (13:07)
[2017-01-22] MEDS: PEPCID PO SCH (13:08)
[2017-01-22] MEDS: PLAVIX PO SCH (13:08)
== END 2017-01-22 13:29 | disposition home or self-care (01) | DRG 310 ==
LOC: ED 23:28 → 4A 01-20 01:33
PROVIDERS: ADMIT Internal Medicine; ATTEND Internal Medicine
DX: R00.1 Bradycardia, unspecified (principal); F29 Unspecified psychosis not due to a substance or known physiological condition; E87.6 Hypokalemia; I10 Essential (primary) hypertension; G40.909 Epilepsy, unspecified, not intractable, without status epilepticus; K21.9 Gastro-esophageal reflux disease without esophagitis; E11.9 Type 2 diabetes mellitus without complications; E83.42 Hypomagnesemia; Z86.73 Personal history of transient ischemic attack (TIA), and cerebral infarction without residual deficits; Z98.891 History of uterine scar from previous surgery; Z88.6 Allergy status to analgesic agent; Z88.8 Allergy status to other drugs, medicaments and biological substances; I25.2 Old myocardial infarction; T50.995A Adverse effect of other drugs, medicaments and biological substances, initial encounter
CPT/HCPCS: 36415; 71010; 80048; 80053; 80307; 82962; 83036; 83735; 84439; 84443; 84484; 85007; 85025; 93005; 93010; 93306; 94760; 96374; A9270-GY; J0461; J1650; J3475